=== PATIENT | male | born 1975 | race Caucasian/White ===

== ENCOUNTER 2018-06-09 08:37 | Emergency (ER) | payer OTHER ==
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
[2018-06-09 10:14] VITALS: BP 134/87
== END 2018-06-09 10:12 | disposition home or self-care (01) ==
LOC: ED 08:37
DX: T63.441A Toxic effect of venom of bees, accidental (unintentional), initial encounter (principal); R21 Rash and other nonspecific skin eruption; Y92.9 Unspecified place or not applicable
CPT/HCPCS: 99282